=== PATIENT | male | born 1930 | race Asian ===

== ENCOUNTER 2020-01-07 16:51 | Inpatient (IN) | payer OTHER ==
[~2020-01-07] VITALS: Ht 172.7 cm; Wt 66.8 kg
[2020-01-07 17:51] LABS: BASOPHIL % 0.4 % (0-2); PLATELET COUNT 178 x10^3mcL (130-400); RED CELL DISTRIBUTION WIDTH 14.4 % (11.5-14.5)
[2020-01-07 17:56] LABS: CALCIUM 8.1 mg/dL (8.5-10.1); CARBON DIOXIDE 25.3 mmol/L (21-32); CHLORIDE SERUM 94 mmol/L (98-107); CREATININE SERUM 0.8 mg/dL (0.7-1.3); GLUCOSE SERUM 153 mg/dL (74-106); POTASSIUM SERUM 4.1 mmol/L (3.5-5.1); SODIUM SERUM 128 mmol/L (136-145)
[2020-01-07 18:01] LABS: ALBUMIN 3.6 g/dL (3.4-5.0); ALKALINE PHOSPHATASE 78 U/L (46-116); ALT/SGPT 37 U/L (16-63); AST/SGOT 34 U/L (15-37); BILIRUBIN TOTAL 0.8 mg/dL (0.20-1.00)
[2020-01-07] MEDS ORDERED: TAMSULOSIN HCL0.4 MG PO (19:21)
[2020-01-07] MEDS ORDERED: FINASTERIDE1 MG PO (19:21)
[2020-01-07] MEDS ORDERED: FUROSEMIDE20 MG PO (19:51)
[2020-01-07] MEDS ORDERED: ELIQUIS2.5 MG PO (19:51)
[2020-01-07] MEDS ORDERED: MEMANTINE HCL5 MG PO (19:52)
[2020-01-07] MEDS ORDERED: ZOLPIDEM TART PO (19:52)
[2020-01-07] MEDS ORDERED: ESCITALOPRAM OX10 MG PO (19:53)
[2020-01-07] MEDS ORDERED: ATORVASTATIN CA20 M1 PO (19:54)
[2020-01-07 19:57] LABS: CHOLESTEROL/HDL RATIO 2.1
[2020-01-07 20:01] LABS: T3 TOTAL 1.01 ng/mL
[2020-01-07 20:08] LABS: FREE T4 1.35 ng/dL (0.76-1.46); FREE THYROXINE INDEX 3.6 ug/dL (1.4-4.5); T4(THYROXINE) 8.9 ug/dL (4.7-13.3)
[2020-01-07 20:56] VITALS: BP 165/83
[2020-01-07 21:00] VITALS: Ht 172.7 cm; Wt 66.8 kg
[2020-01-07 21:03] VITALS: BP 161/89
[2020-01-08 00:27] LABS: microscopic required? YES; urine erythrocyte 1+ (NEGATIVE)
[2020-01-08 05:22] VITALS: BP 123/70
[2020-01-08 07:13] LABS: BASOPHIL % 0.1 % (0-2); PLATELET COUNT 159 x10^3mcL (130-400); RED CELL DISTRIBUTION WIDTH 14.1 % (11.5-14.5)
[2020-01-08 07:18] LABS: CALCIUM 8.7 mg/dL (8.5-10.1); CARBON DIOXIDE 22.4 mmol/L (21-32); CHLORIDE SERUM 96 mmol/L (98-107); CREATININE SERUM 0.9 mg/dL (0.7-1.3); GLUCOSE SERUM 182 mg/dL (74-106); MAGNESIUM 2.1 mg/dL (1.8-2.4); PHOSPHOROUS 4.1 mg/dL (2.5-4.9); SODIUM SERUM 127 mmol/L (136-145)
[2020-01-08 08:49] VITALS: BP 120/67
[2020-01-08 13:44] VITALS: BP 126/72
[2020-01-08 16:14] VITALS: BP 118/67
[2020-01-08 21:35] VITALS: BP 134/71
[2020-01-09 05:38] VITALS: BP 135/66
[2020-01-09 06:44] LABS: BASOPHIL % 0.2 % (0-2); PLATELET COUNT 172 x10^3mcL (130-400); RED CELL DISTRIBUTION WIDTH 14.1 % (11.5-14.5)
[2020-01-09 07:02] LABS: CALCIUM 8.6 mg/dL (8.5-10.1); CARBON DIOXIDE 24.3 mmol/L (21-32); CHLORIDE SERUM 93 mmol/L (98-107); CREATININE SERUM 0.9 mg/dL (0.7-1.3); GLUCOSE SERUM 117 mg/dL (74-106); MAGNESIUM 2.3 mg/dL (1.8-2.4); PHOSPHOROUS 4.5 mg/dL (2.5-4.9); SODIUM SERUM 129 mmol/L (136-145)
[2020-01-09 08:34] VITALS: BP 160/74
[2020-01-09 09:01] VITALS: BP 160/74
[2020-01-09 11:47] VITALS: BP 133/76
[2020-01-09 18:11] VITALS: BP 163/82
[2020-01-09 20:41] VITALS: BP 135/57
[2020-01-10 10:05] VITALS: BP 136/67
[2020-01-10 10:42] VITALS: BP 136/67
[2020-01-10 10:45] LABS: CALCIUM 8.6 mg/dL (8.5-10.1); CARBON DIOXIDE 25.1 mmol/L (21-32); CHLORIDE SERUM 91 mmol/L (98-107); CREATININE SERUM 1.3 mg/dL (0.7-1.3); GLUCOSE SERUM 244 mg/dL (74-106); POTASSIUM SERUM 4.3 mmol/L (3.5-5.1); SODIUM SERUM 126 mmol/L (136-145)
[2020-01-10 14:11] VITALS: BP 132/62
[2020-01-10 16:26] VITALS: BP 125/71
[2020-01-10 21:09] VITALS: BP 124/68
[2020-01-11 05:27] VITALS: BP 145/65
[2020-01-11 06:27] LABS: BASOPHIL % 0.1 % (0-2); PLATELET COUNT 155 x10^3mcL (130-400)
[2020-01-11 07:04] LABS: CALCIUM 8.7 mg/dL (8.5-10.1); CARBON DIOXIDE 25.2 mmol/L (21-32); CHLORIDE SERUM 91 mmol/L (98-107); CREATININE SERUM 1.1 mg/dL (0.7-1.3); GLUCOSE SERUM 153 mg/dL (74-106); POTASSIUM SERUM 4.5 mmol/L (3.5-5.1); SODIUM SERUM 126 mmol/L (136-145)
[2020-01-11 08:45] VITALS: BP 110/42
[2020-01-11 12:24] VITALS: BP 116/83
[2020-01-11 18:00] VITALS: BP 136/77
[2020-01-11 20:16] VITALS: BP 127/65
[2020-01-12 05:40] VITALS: BP 128/71
[2020-01-12 08:37] VITALS: BP 155/74
[2020-01-12] MEDS ORDERED: LASIX40 MG PO (10:06)
[2020-01-12] MEDS ORDERED: TOP50 PO (10:38)
[2020-01-12] MEDS ORDERED: ZES5 PO (10:38)
[2020-01-12 11:38] VITALS: BP 155/74
[2020-01-12 12:41] VITALS: BP 140/69
[2020-01-12 16:31] VITALS: BP 133/90
== END 2020-01-12 17:52 | disposition home health service (06) | DRG 194 ==
LOC: ED 16:51 → DU 19:04 → MU 01-10 16:57
PROVIDERS: Emergency Medicine; ADMIT Family Medicine
DX: I11.0 Hypertensive heart disease with heart failure (principal); E87.1 Hypo-osmolality and hyponatremia; I42.9 Cardiomyopathy, unspecified; I48.20 Chronic atrial fibrillation, unspecified; D64.9 Anemia, unspecified; I50.9 Heart failure, unspecified; I71.2 Thoracic aortic aneurysm, without rupture; E78.1 Pure hyperglyceridemia; F03.90 Unspecified dementia, unspecified severity, without behavioral disturbance, psychotic disturbance, mood disturbance, and anxiety; I35.0 Nonrheumatic aortic (valve) stenosis; N40.0 Benign prostatic hyperplasia without lower urinary tract symptoms; F41.9 Anxiety disorder, unspecified; I50.23 Acute on chronic systolic (congestive) heart failure; Z68.22 Body mass index [BMI] 22.0-22.9, adult; Z79.01 Long term (current) use of anticoagulants; Z86.73 Personal history of transient ischemic attack (TIA), and cerebral infarction without residual deficits
CPT/HCPCS: 76770; 83880; 84439; 87804; 97110-GP; 97116-GP; 97530-GP; G0378; J1940; J2920; J7512; Q0092

== ENCOUNTER 2020-01-13 23:33 | Emergency (ER) | payer OTHER ==
[~2020-01-13] VITALS: Ht 170.2 cm; Wt 64.9 kg
[~2020-01-13 23:33] MED LIST: ATORVASTATIN CA20 M1 PO; ELIQUIS2.5 MG PO; ESCITALOPRAM OX10 MG PO; FINASTERIDE1 MG PO; FUROSEMIDE20 MG PO; LASIX40 MG PO; MEMANTINE HCL5 MG PO; TAMSULOSIN HCL0.4 MG PO; TOP50 PO; ZES5 PO; ZOLPIDEM TART PO
[2020-01-13 23:49] VITALS: Ht 170.2 cm; Wt 64.9 kg
[2020-01-14 00:49] LABS: BASOPHIL % 0.5 % (0-2); PLATELET COUNT 154 x10^3mcL (130-400)
[2020-01-14 00:50] LABS: RED CELL DISTRIBUTION WIDTH 14.7 % (11.5-14.5)
[2020-01-14 01:01] LABS: CARBON DIOXIDE 30.3 mmol/L (21-32); CHLORIDE SERUM 93 mmol/L (98-107); GLUCOSE SERUM 107 mg/dL (74-106); POTASSIUM SERUM 4.1 mmol/L (3.5-5.1); SODIUM SERUM 128 mmol/L (136-145)
[2020-01-14 01:06] LABS: ALBUMIN 3.5 g/dL (3.4-5.0); ALKALINE PHOSPHATASE 85 U/L (46-116); ALT/SGPT 60 U/L (16-63); AST/SGOT 50 U/L (15-37); BILIRUBIN TOTAL 1.4 mg/dL (0.20-1.00); TOTAL PROTEIN, SERUM 6.5 g/dL (6.4-8.2)
[2020-01-14 01:46] LABS: UA SPECIFIC GRAVITY 1.025 (1.005-1.035); microscopic required? YES; urine erythrocyte 3+ (NEGATIVE)
[2020-01-14 03:25] VITALS: BP 134/61
== END 2020-01-14 03:25 | disposition home or self-care (01) ==
LOC: ED 23:33
PROVIDERS: Emergency Medicine
DX: R31.0 Gross hematuria (principal); K62.5 Hemorrhage of anus and rectum; I11.0 Hypertensive heart disease with heart failure; I50.9 Heart failure, unspecified; I48.91 Unspecified atrial fibrillation
CPT/HCPCS: 36415

== ENCOUNTER 2020-02-11 21:39 | Emergency (ER) | payer OTHER ==
[~2020-02-11] VITALS: Ht 152.4 cm; Wt 68.0 kg
[2020-02-11 21:50] VITALS: Ht 152.4 cm; Wt 68.0 kg
[2020-02-11 22:33] LABS: BASOPHIL % 0.2 % (0-2)
[2020-02-11 22:34] LABS: PLATELET COUNT 98 x10^3mcL (130-400); RED CELL DISTRIBUTION WIDTH 15.6 % (11.5-14.5)
[2020-02-11 22:41] LABS: microscopic required? YES; urine erythrocyte 1+ (NEGATIVE)
[2020-02-11 22:56] LABS: ALKALINE PHOSPHATASE 65 U/L (46-116); ALT/SGPT 43 U/L (16-63); AST/SGOT 64 U/L (15-37); BILIRUBIN TOTAL 2.2 mg/dL (0.20-1.00); CALCIUM 8.3 mg/dL (8.5-10.1); CARBON DIOXIDE 28.4 mmol/L (21-32); CHLORIDE SERUM 108 mmol/L (98-107); CREATININE SERUM 1.6 mg/dL (0.7-1.3); GLUCOSE SERUM 162 mg/dL (74-106); HDL CHOLESTEROL 39 mg/dL (40-60); SODIUM SERUM 149 mmol/L (136-145)
[2020-02-11 22:58] LABS: ALBUMIN 2.7 g/dL (3.4-5.0); CHOLESTEROL 76 mg/dL (<200); TOTAL PROTEIN, SERUM 5.6 g/dL (6.4-8.2)
[2020-02-11 23:00] LABS: POTASSIUM SERUM 2.6 mmol/L (3.5-5.1)
[2020-02-12 05:25] VITALS: BP 139/81
== END 2020-02-12 05:25 | disposition short-term general hospital (02) ==
LOC: ED 21:39
PROVIDERS: Emergency Medicine
DX: I50.9 Heart failure, unspecified (principal); G91.9 Hydrocephalus, unspecified; E23.2 Diabetes insipidus; I10 Essential (primary) hypertension; Z86.73 Personal history of transient ischemic attack (TIA), and cerebral infarction without residual deficits; I48.91 Unspecified atrial fibrillation
CPT/HCPCS: 36600; 82308; 83880; 87804; J0456; J0696; J1940; J3480; J7030; J7050; J7060; Q0092